=== PATIENT | female | born 1945 | race Asian ===

== ENCOUNTER 2016-12-16 08:16 | Outpatient (CLI) | payer MEDICARE, MEDICAID ==
--- NOTE | 2016-12-16 12:23 | XRAY Report ---
TWO-VIEW CHEST: 12/16/2016 CLINICAL INDICATION: Endstage renal disease. FINDINGS: Frontal and lateral views of the chest demonstrate an enlarged cardiac silhouette. Mild p ulmonary vascular congestion is present. No focal consolidation, effusion, or pneumothorax is seen. IMPRESSION: CARDIOMEGALY AND MILD PULMONARY VASCULAR CONGESTION. JOB #: [id number] EXT JOB #:[id number]
[2016-12-17 10:08] LABS: TEST RESULT REPORT (())
== END 2016-12-16 08:17 | disposition home or self-care (01) ==
LOC: LAB 08:16
PROVIDERS: ATTEND Internal Medicine Nephrology
DX: I51.7 Cardiomegaly (principal); R09.89 Other specified symptoms and signs involving the circulatory and respiratory systems; N18.6 End stage renal disease
CPT/HCPCS: 36415; 71020; 81599; 86317; 86705; 86803; 87340; 87522

== ENCOUNTER 2017-06-01 09:12 | Outpatient (CLI) | payer MEDICARE, MEDICAID ==
--- NOTE | 2017-06-02 15:53 | Mammography Report ---
DATE OF SERVICE: 06/01/2017 DIGITAL SCREENING MAMMOGRAM: 06/01/2017 CLINICAL INDICATION: A 72-year-old, for screening. COMPARISON: 05/2015, 02/2013, 05/2012, 12/2010, 02/2009. TECHNIQUE: Routine CC and MLO projections were obtained of the breasts. FINDINGS: The breasts demonstrate heterogeneously dense fibroglandular parenchyma bilaterally. Punctate, typically benign calcifications are present. No suspicious masses, clustered microcalcifications, or regions of architectural distortion are identified. IMPRESSION: BENIGN FINDINGS. RECOMMENDATION: ROUTINE ANNUAL SCREENING UNLESS OTHERWISE CLINICALLY INDICATED. BIRADS CATEGORY 2-BENIGN FINDINGS. STANDARD QUALIFYING STATEMENTS: 1. This examination was reviewed with the aid of Computer-Aided Detection (CAD). 2. A negative or benign imaging report should not delay biopsy if clinically suspicious findings are present. Consider surgical consultation if warranted. More than 5% of cancers are not identified by imaging. 3. Dense breasts may obscure an underlying neoplasm. TD: 06/02/2017 16:52
== END 2017-06-01 09:13 | disposition home or self-care (01) ==
LOC: DI.N 09:12
PROVIDERS: ATTEND Internal Medicine
DX: Z12.31 Encounter for screening mammogram for malignant neoplasm of breast (principal)
CPT/HCPCS: 77067

== ENCOUNTER 2017-11-02 08:44 | Outpatient (CLI) | payer MEDICARE, MEDICAID ==
--- NOTE | 2017-11-02 16:10 | XRAY Report ---
Procedure Date: 11/02/2017 Accession Number: [id number] / [id number] Procedure: XR - Chest 2 View X-Ray CPT Code: 74432 FULL RESULT: EXAM: Chest 2 View X-Ray DATE: 11/02/2017 9:14 AM CLINICAL HISTORY: END STAGE RENAL DISEASE,ENCOUNTER FOR SCREENING, U COMPARISON: 12/16/2016 TECHNIQUE: 2 view chest FINDINGS: Frontal and lateral views of the chest demonstrate a normal cardiac silhouette. The lungs are clear. No effusion or pneumothorax is present. Previously seen cardiomegaly and vascular congestion have resolved. IMPRESSION: Normal chest.
--- NOTE | 2017-11-03 11:08 | CT Report ---
Procedure Date: 11/02/2017 Accession Number: [id number] / [id number] Procedure: CT - Abdomen/Pelvis W/O CPT Code: FULL RESULT: EXAM: CT ABDOMEN AND PELVIS EXAM DATE: 11/02/2017 09:04 AM. CLINICAL HISTORY: END STAGE RENAL DISEASE,ENCOUNTER FOR SCREENING, U. COMPARISONS: None. TECHNIQUE: Routine helical CT imaging was performed through the abdomen and pelvis. IV contrast: . Enteric contrast: No. Reconstructions: Coronal and sagittal. In accordance with CT protocol optimization, one or more of the following dose reduction techniques were utilized for this exam: automated exposure control, adjustment of mA and/or KV based on patient size, or use of iterative reconstructive technique. FINDINGS: Lung Bases: Unremarkable. Liver: Normal. No masses. Gallbladder/Bile Ducts: Unremarkable. Spleen: Normal. Pancreas: Normal. Adrenal Glands: Normal. Kidneys: Normal. No masses or hydronephrosis. Peritoneal Cavity/Bowel: Diverticulosis. No free fluid, free air or adenopathy. No masses or acute inflammatory process. The appendix is well visualized and normal. Pelvic Organs: The bladder is decompressed. Vasculature: Severe atherosclerotic disease. Bones: No significant abnormality. Other: None. IMPRESSION: 1. Severe atherosclerotic disease. Mild wall calcifications in the mid left external iliac artery and mild wall calcifications in the distal right external iliac artery. Moderate to severe wall calcifications in the bilateral common iliac arteries and infrarenal abdominal aorta. 2. Diverticulosis. RADIA
== END 2017-11-02 08:45 | disposition home or self-care (01) ==
LOC: DI 08:44
PROVIDERS: ATTEND Internal Medicine Nephrology
DX: N18.6 End stage renal disease (principal); Z13.9 Encounter for screening, unspecified; I70.8 Atherosclerosis of other arteries; K57.90 Diverticulosis of intestine, part unspecified, without perforation or abscess without bleeding
CPT/HCPCS: 71046; 74176

== ENCOUNTER 2017-11-18 07:31 | Outpatient (CLI) | payer MEDICARE, MEDICAID ==
--- NOTE | 2017-11-18 14:56 | Ultrasound Report ---
Procedure Date: 11/18/2017 Accession Number: [id number] / [id number] Procedure: US - Carotid Doppler Complete CPT Code: FULL RESULT: EXAM: BILATERAL CAROTID AND VERTEBRAL ARTERY DUPLEX DOPPLER ULTRASOUND: EXAM DATE: 11/18/2017 08:33 AM CLINICAL HISTORY: Endstage renal disease. Encounter for screening. COMPARISON: None. TECHNIQUE: Grayscale imaging, color Doppler, and duplex spectral Doppler were used to evaluate the carotid and vertebral arteries bilaterally. Static images were obtained. FINDINGS: Prominent calcified plaque within distal right carotid bulb and proximal ICA, image 25. Peak systolic velocity with proximal right ICA was 149 cm/s; however, 224 cm/s within distal carotid bulb near ICA. Calcific plaque within distal left carotid bulb limits grayscale and color Doppler evaluation. Tortuous left internal carotid artery. Normal antegrade flow is present in bilateral vertebral arteries. VELOCITIES (cm/sec): Right: RCCA Prox: PSV 54 cm/sec. RCCA Dist: PSV 54 cm/sec, EDV 14 cm/sec. RECA: PSV 213 cm/sec. R Bulb: PSV 224 cm/sec, EDV 53 cm/sec, ICA/CCA ratio 4.1. VEENA Prox: PSV 149 cm/sec, EDV 21 cm/sec, ICA/CCA ratio 2.75. VEENA Mid: PSV 72 cm/sec, EDV 16 cm/sec, ICA/CCA ratio 1.33. VEENA Dist: PSV 80 cm/sec, EDV 20 cm/sec, ICA/CCA ratio 1.48. RVA: PSV 62 cm/sec. RVA flow direction: Antegrade. Left: LCCA Prox: PSV 89 cm/sec. LCCA Dist: PSV 49 cm/sec, EDV 11 cm/sec. LECA: PSV 157 cm/sec. L Bulb: PSV 124 cm/sec, EDV 20 cm/sec, ICA/CCA ratio 2.53. LICA Prox: PSV 75 cm/sec, EDV 20 cm/sec, ICA/CCA ratio 1.53. LICA Mid: PSV 82 cm/sec, EDV 15 cm/sec, ICA/CCA ratio 1.67. LICA Dist: PSV 47 cm/sec, EDV 17 cm/sec, ICA/CCA ratio 0.96. LVA: PSV 50 cm/sec. LVA flow direction: Antegrade. ICA diameter stenosis: Right: 50-69%, likely closer to 69% near ICA origin. Left: Less than 50%. IMPRESSION: 1. Significant bilateral distal carotid bulb and proximal internal carotid artery plaquing. 2. In the right carotid artery there is 50-69% stenosis, likely closer to 69% near its origin. 3. In the left carotid artery there are no elevated carotid artery velocities to suggest hemodynamically significant stenosis; however, borderline elevated velocities are noted in distal left carotid bulb. 4. Normal antegrade flow is present in bilateral vertebral arteries. General Recommendations: Stenosis =50% ICA - Follow-up ultrasound 6-12 months Stenosis <50% ICA - High Risk Patient with plaque - Follow-up ultrasound 1-2 years Normal Study but High Risk Patient - Follow-up ultrasound 3-5 years Management recommendations and diagnostic criteria are based on current IAC endorsed standards in Carotid Artery Stenosis: Grayscale and Doppler Ultrasound Diagnosis. Validated velocity measurements with angiographic measurements and velocity criteria are extrapolated from diameter data as defined by the Society of Radiologists in Ultrasound Consensus Conference Radiology 2003; 229;340-346. RADIA
--- NOTE | 2017-11-18 15:08 | Ultrasound Report ---
Procedure Date: 11/18/2017 Accession Number: [id number] / [id number] Procedure: US - Abdomen Complete CPT Code: FULL RESULT: EXAM: ABDOMEN ULTRASOUND EXAM DATE: 11/18/2017 09:15 AM. CLINICAL HISTORY: END STAGE RENAL Disease, encounter FOR SCREENING, U. COMPARISON: None. TECHNIQUE: Real-time scanning was performed with static images obtained. FINDINGS: Liver: Normal in size and echotexture. 15.4 cm. No sonographic evidence for liver mass. Main portal vein flow: Hepatopetal. Gallbladder: Normal. No stones, wall thickening, or sonographic Garcia's sign. Biliary System: Common bile duct measures 5-7 mm. No intrahepatic or extrahepatic ductal dilatation. Pancreas: Visualized portion is unremarkable. Kidneys: Right: 8.2 cm longitudinally. Diffusely echogenic renal parenchyma. No contour-deforming mass, stones, or hydronephrosis. Left: 7.9 cm longitudinally. Diffusely echogenic renal parenchyma. No contour-deforming solid mass, stones, or hydronephrosis. Lateral left mid renal cyst measures 1.5 cm. Spleen: 8.6 cm. Normal in size and echotexture. Aorta and Inferior Vena Cava: Extensive calcified atherosclerotic plaque within abdominal aorta. Abdominal aorta measures 1.3 cm diameter distally, 1.7 cm midportion and 2.2 cm proximally. No abdominal aortic aneurysm. Unremarkable IVC. Other: None. IMPRESSION: 1. Diffusely echogenic bilateral renal parenchyma, compatible with medical renal disease. 2. No hydronephrosis involving either kidney. 3. Atherosclerosis. RADIA
--- NOTE | 2017-11-18 16:12 | Ultrasound Report ---
Procedure Date: 11/18/2017 Accession Number: [id number] / [id number] Procedure: US - Duplex Aorta Complete CPT Code: FULL RESULT: EXAM: AORTIC DOPPLER ULTRASOUND EXAM DATE: 11/18/2017 09:50 AM. CLINICAL HISTORY: End-stage renal disease, encounter for screening. COMPARISON: None. TECHNIQUE: Real-time sonographic imaging of retroperitoneal vascular structures, including color-flow, Doppler flow and spectral analysis was performed by the clean up helper banquet. Multiple route sales representative static images were saved for review. FINDINGS: Aorta: The abdominal aorta was adequately visualized. No evidence for abdominal aortic aneurysm. Extensive calcified atherosclerotic plaque within the abdominal aorta and common iliac arteries. Aorta: Proximal: Sagittal AP: 2.2 cm. Mid: Transverse: 1.7 X 1.8 cm. Distal: Transverse: 1.3 X 1.1 cm. Caliber WNL: Yes. Plaque visualized: Yes. Iliacs: Right Iliac: Transverse: 1.1 X 1.1 cm. Left Iliac: Transverse: 0.9 X 0.9 cm. Doppler: Prox Aorta PSV: 75 cm/sec. Mid Aorta PSV: 109 cm/sec. Dist Aort PSV: 168 cm/sec. Proximal RCIA PSV: 124 cm/sec. Proximal LCIA PSV: 129 cm/sec. Right EIA: 124 cm/sec. Left EIA: 138 cm/sec. Iliac Vessels: The visualized proximal common iliac arteries are normal in caliber. Other: None. IMPRESSION: 1. No abdominal aortic aneurysm. 2. Atherosclerosis. Extensive calcified atherosclerotic plaque throughout the abdominal aorta and common iliac arteries. RADIA
--- NOTE | 2017-11-18 16:44 | Ultrasound Report ---
Procedure Date: 11/18/2017 Accession Number: [id number] / [id number] Procedure: US - Duplex Lwr Ext Arterial Bilat CPT Code: FULL RESULT: EXAM: BILATERAL LOWER EXTREMITY ARTERIAL DOPPLER ULTRASOUND EXAM DATE: 11/18/2017 10:00 AM. CLINICAL HISTORY: End stage renal disease, encounter for screening, U. COMPARISON: None. TECHNIQUE: Real-time sonographic vascular imaging was performed by the crushing foreman, utilizing color-flow, Doppler flow, and spectral analysis. Multiple patient intake representative static images were saved for review. FINDINGS: Right: Prominent focal calcified plaque within right common femoral artery. Turbulent flow noted with greater than 4 fold increase in velocity from proximal right common femoral artery with PSV 97 cm/s increasing to 419 cm/s within the mid common femoral artery, consistent with greater than 75% stenosis. Left: Relatively mild common femoral arterial calcified plaque. Peak systolic velocity within profunda femoral artery increases to 300 cm/s with turbulent power Doppler flow. Findings consistent with a greater than 50% stenosis. Peak systolic velocity decreases from 143 cm/s in proximal SFA to 38 cm/s in mid SFA before increasing to 241 cm/s in distal SFA. Peak Systolic Velocities: R MANAGER ASSURANCE: 420.1 cm/sec. R PRF: 162.1 cm/sec. R SFA Pv: 104.3 cm/sec. R SFA Mv: 124.8 cm/sec. R SFA Dv: 59.3 cm/sec. R POP: 62.4 cm/sec. R PT: 30.8 cm/sec. R PER: 26.3 cm/sec. R ANT: 36.7 cm/sec. R DPA 25.2 cm/sec. L MANAGER ASSURANCE: 94.7 cm/sec. L PRF: 300.4 cm/sec. L SFA Pv: 143.2 cm/sec. L SFA Mv: 37.7 cm/sec. L SFA Dv: 240.7 cm/sec. L POP: 23.6 cm/sec. L PT: 19.3 cm/sec. L PER: 11.0 cm/sec. L ANT: 17.0 cm/sec. L DPA 7.8 cm/sec. IMPRESSION: 1. 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 2. Multiple areas of stenosis within left superficial femoral artery are likely present. Peak systolic velocity decreases from 143 cm/s in proximal SFA to 38 cm/s in mid SFA, probably related to greater than 50% stenosis. There is a greater than 6 fold increase in PSV from mid to distal left superficial femoral artery, compatible with greater than 50% and likely closer to 75% stenosis. 3. Consider angiography of the lower extremities with either CTA or DSA/interventional radiology if clinically warranted. RADIA
== END 2017-11-18 07:32 | disposition home or self-care (01) ==
LOC: DI 07:31
PROVIDERS: ATTEND Internal Medicine Nephrology
DX: N18.6 End stage renal disease (principal); Z13.9 Encounter for screening, unspecified; I65.21 Occlusion and stenosis of right carotid artery; I77.1 Stricture of artery; I70.0 Atherosclerosis of aorta; I70.8 Atherosclerosis of other arteries; I70.201 Unspecified atherosclerosis of native arteries of extremities, right leg
CPT/HCPCS: 76700; 93880; 93925; 93978

== ENCOUNTER 2019-12-01 11:06 | Outpatient (CLI) | payer MEDICARE, MEDICAID ==
--- NOTE | 2019-12-04 12:00 | Mammography Report ---
BILATERAL DIGITAL SCREENING MAMMOGRAM 3D/2D: 12/01/2019 CLINICAL: Routine screening. Comparison is made to exams dated: 06/01/2017 mammogram and 05/29/2015 mammogram - [facility]. The tissue of both breasts is extremely dense, which lowers the sensitivity of mammography. There is an irregular asymmetry with a spiculated margin in the left breast sub-areolar depth central to the nipple seen on the craniocaudal view only. No other significant masses, calcifications, or other findings are seen in either breast. IMPRESSION: INCOMPLETE: NEEDS ADDITIONAL IMAGING EVALUATION The irregular asymmetry in the left breast is indeterminate. Additional views with possible ultrasou nd are recommended. This exam was interpreted at Station ID: [id number]. NOTE: For mammograms, a report in lay terms will be sent to the patient. Approximately 15% of breast malignancies will not be visualized mammographically. In the management of a palpable breast mass, a negative mammogram must not discourage biopsy of a clinically suspicious lesion. Electronically Signed By: Sandi peters/jesus manuel:12/01/2019 13:00:25 ACR BI-RADS Category 0: Incomplete 3340F PARENCHYMAL PATTERN: (VD) - The breast(s) demonstrate(s) extremely dense parenchyma, limiting the sen sitivity of mammography. BI-RADS CATEGORY: (0) - 0 Mammo and US [id number] Immediate follow-up LATERALITY: (B)
== END 2019-12-01 11:07 | disposition home or self-care (01) ==
LOC: DI 11:06
PROVIDERS: ATTEND Internal Medicine
DX: Z12.31 Encounter for screening mammogram for malignant neoplasm of breast (principal); R92.8 Other abnormal and inconclusive findings on diagnostic imaging of breast
CPT/HCPCS: 77063; 77067

== ENCOUNTER 2020-01-19 13:30 | Outpatient (CLI) | payer MEDICARE, MEDICAID ==
--- NOTE | 2020-01-22 10:35 | Mammography Report ---
UNILATERAL LEFT DIGITAL DIAGNOSTIC MAMMOGRAM 3D/2D: 01/19/2020 CLINICAL: Patient returns today to evaluate asymmetry in left breast. Comparison is made to exams dated: 12/01/2019 mammogram, 06/01/2017 mammogram, 05/29/2015 mammogram, 02/22 mammogram, 03/20/2013 ultrasound, and 06/16/2012 mammogram - [facility]. The tissue of left breast is heterogeneously dense. This may lower the sensitivity of mammography. The previously described benign asymmetry in the left breast sub-areolar depth central to the nipple seen on the craniocaudal view only is no longer seen on not confirmed on today's additional views. This is consistent with summation artifact. No other significant masses or calcifications are seen in the breast. IMPRESSION: BENIGN The previously described asymmetry disperses with additional views and is consistent with summation a rtifact. There is no mammographic evidence of malignancy. A 1 year screening mammogram is recommended. Findings and recommendations were conveyed to the patient during today's examination. This exam was interpreted at Station ID: [id number]. NOTE: For mammograms, a report in lay terms will be sent to the patient. Approximately 15% of breast malignancies will not be visualized mammographically. In the management of a palpable breast mass, a negative mammogram must not discourage biopsy of a clinically suspicious lesion. Electronically Signed By: Jeffery Myers M.D. aty/:01/19/2020 14:59:16 ACR BI-RADS Category 2: Benign Finding(s) 3342F PARENCHYMAL PATTERN: (D) - The breast(s) demonstrate(s) heterogeneously dense fibroglandular ras cline. BI-RADS CATEGORY: (2) - 2 RECOMMENDATION: (ANNUAL) - Recommend routine annual screening mammography. [id number] 1 year screening LATERALITY: (B)
== END 2020-01-19 13:31 | disposition home or self-care (01) ==
LOC: DI 13:30
PROVIDERS: ATTEND Internal Medicine
DX: R92.8 Other abnormal and inconclusive findings on diagnostic imaging of breast (principal)

== ENCOUNTER 2021-05-27 08:51 | Outpatient (CLI) | payer MEDICARE, MEDICAID ==
--- NOTE | 2021-05-28 13:56 | Mammography Report ---
BILATERAL DIGITAL SCREENING MAMMOGRAM 3D/2D: 05/27/2021 CLINICAL: Routine screening. Comparison is made to exams dated: 01/19/2020 mammogram, 12/01/2019 mammogram, 06/01/2017 mammogram, 05/29 mammogram, 03/20/2013 ultrasound, and 03/20/2013 mammogram - [facility]. The tissue of both breasts is heterogeneously dense. This may lower the sensitivity of mammography. There are benign vascular calcifications in both breasts. No significant masses, calcifications, or other findings are seen in either breast. There has been no significant interval change. IMPRESSION: BENIGN There is no mammographic evidence of malignancy. A 1 year screening mammogram is recommended. This exam was interpreted at Station ID: [id number]. NOTE: For mammograms, a report in lay terms will be sent to the patient. Approximately 15% of breast malignancies will not be visualized mammographically. In the management of a palpable breast mass, a negative mammogram must not discourage biopsy of a clinically suspicious lesion. Electronically Signed By: Mulugeta Menon acr/penrad:05/27/2021 10:54:21 ACR BI-RADS Category 2: Benign Finding(s) 3342F PARENCHYMAL PATTERN: (D) - The breast(s) demonstrate(s) heterogeneously dense fibroglandular ras cline. BI-RADS CATEGORY: (2) - 2 RECOMMENDATION: (ANNUAL) - Recommend routine annual screening mammography. [id number] 1 year screening LATERALITY: (B)
== END 2021-05-27 08:52 | disposition home or self-care (01) ==
LOC: DI.N 08:51
PROVIDERS: ATTEND Internal Medicine
DX: Z12.31 Encounter for screening mammogram for malignant neoplasm of breast (principal)

== ENCOUNTER 2023-02-01 09:45 | Outpatient (CLI) | payer MEDICARE, MEDICAID ==
--- NOTE | 2023-02-02 09:34 | Mammography Report ---
BILATERAL DIGITAL SCREENING MAMMOGRAM 3D/2D: 02/01/2023 CLINICAL: Routine screening. Comparison is made to exams dated: 05/27/2021 mammogram, 01/19/2020 mammogram, 12/01/2019 mammogram, 06/01 mammogram, 05/29/2015 mammogram, and 03/20/2013 ultrasound - [facility]. Both breasts are heterogeneously dense, which may obscure small masses (category c / 51-75% glandular tissue). There are benign vascular calcifications in both breasts. No significant masses, calcifications, or other findings are seen in either breast. There has been no significant interval change. IMPRESSION: BENIGN There is no mammographic evidence of malignancy. A 1 year screening mammogram is recommended. Based on the Tyrer Cuzick model (a risk assessment model) the patients lifetime risk is 2.3% and her 10 year risk is 0.0%. According to the ACR, ACS, and NCCN guidelines, an annual breast MRI exam wolfgang g with mammogram is recommended if the patients lifetime risk is 20% or greater. This exam was interpreted at Station ID: [id number]. NOTE: For mammograms, a report in lay terms will be sent to the patient. Approximately 15% of breast malignancies will not be visualized mammographically. In the management of a palpable breast mass, a negative mammogram must not discourage biopsy of a clinically suspicious lesion. Electronically Signed By: Jeffery cheney/jesus manuel:02/01/2023 12:00:49 letter sent: No_Letter ACR BI-RADS Category 2: Benign Finding(s) 3342F PARENCHYMAL PATTERN: (D) - The breast(s) demonstrate(s) heterogeneously dense fibroglandular ras cline. BI-RADS CATEGORY: (2) - 2 Mammogram [id number] 1 year screening LATERALITY: (B)
== END 2023-02-01 09:46 | disposition home or self-care (01) ==
LOC: DI.N 09:45
PROVIDERS: ATTEND Internal Medicine
DX: Z12.31 Encounter for screening mammogram for malignant neoplasm of breast (principal)

== ENCOUNTER 2023-06-20 01:29 | Emergency (ER) | payer MEDICARE, MEDICAID ==
[2023-06-20] MEDS ORDERED: MIDAZOLAM 2 MG/2 ML VIAL ONE ×3 (02:10→02:54)
[2023-06-20] MEDS ORDERED: PROPOFOL 1000 MG/100 ML 1,000 MG/100 ML BOTTLE IV ONE (02:10)
[2023-06-20] MEDS: PROPOFOL 1000 MG/100 ML 1,000 MG/100 ML BOTTLE IV SCH (02:26)
[2023-06-20] MEDS: MIDAZOLAM 2 MG/2 ML VIAL IVP STA (02:56)
[2023-06-20 02:59] LABS: BASOPHILS % (AUTO) 0.3 %; EOSINOPHILS # (AUTO) 0.1 10^3/uL (0.0-0.7); EOSINOPHILS % (AUTO) 0.9 %; HCT - HEMATOCRIT 29.7 % (37.0-47.0); HGB - HEMOGLOBIN 9.1 g/dL (12.0-16.0); LYMPHOCYTES # (AUTO) 0.9 10^3/uL (1.5-3.5); LYMPHOCYTES % (AUTO) 8.7 %; MEAN CORPUSCULAR HEMOGLOBIN 31.1 pg (27.0-31.0); MEAN CORPUSCULAR HGB CONC 30.6 g/dL (32.0-36.0); MEAN CORPUSCULAR VOLUME 101.4 fL (81.0-99.0); MEAN PLATELET VOLUME 9.5 fL (7.9-10.8); MONOCYTES # (AUTO) 0.7 10^3/uL (0.0-1.0); MONOCYTES % (AUTO) 6.9 %; NEUTROPHILS # (AUTO) 8.6 10^3/uL (1.5-6.6); NEUTROPHILS % (AUTO) 82.1 %; PLT - PLATELET COUNT 164 10^3/uL (130-450); RED BLOOD COUNT 2.93 10^6/uL (4.20-5.40); RED CELL DISTRIBUTION WIDTH 20.2 % (12.0-15.0); WHITE BLOOD COUNT 10.5 x10^3/uL (4.8-10.8)
--- NOTE | 2023-06-20 03:00 | ED Physician Documentation ---
History of Present Illness - Stated complaint Stated Complaint: SOA/BP HIGH - Chief complaint Chief Complaint: Resp - History obtained from History obtained from: Family - Additonal information Additional information: 78-year-old female with history of ESRD on Wednesday dialysis, insulin-dependent diabetes, hypertension, gout, recent COVID-19 infection presents by private vehicle from home for low ox saturations and variable blood pressures at home. History is obtained from daughter at bedside. Daughter stated that patient underwent normal dialysis yesterday, however since yesterday she has had intermittent low pulse ox readings at home and variable blood pressures, ranging from hypotensive to hypertensive. Patient was reluctant to go to the ER, however this evening she felt poorly enough that family convinced her to come in for evaluation. Almost immediately after arrival to the emergency department the patient exhibited seizure-like activity. On shelter monitor it was noted that patient was bradycardic in the 20s. Pulse unable to be palpated and CPR initiated immediately. Review of Systems Unable to obtain: Unresponsive PD PAST MEDICAL HISTORY - Past Medical History Past Medical History: Yes - Present Medications Home Medications: Ambulatory Orders Medication Instructions Recorded Confirmed Amlodipine Besylate [Norvasc] 10 mg PO DAILY 06/20/23 06/20/23 Atorvastatin Calcium 40 mg PO DAILY 06/20/23 06/20/23 Insulin Glargine [Lantus Solostar] 30 unit SUBQ BID 06/20/23 06/20/23 Meclizine HCl 25 mg PO QID PRN 06/20/23 06/20/23 Torsemide 40 mg PO DAILY 06/20/23 06/20/23 allopurinoL [Allopurinol] 200 mg PO DAILY 06/20/23 06/20/23 carvediloL [Coreg] 12.5 mg PO BID 06/20/23 06/20/23 - Allergies Allergies/Adverse Reactions: Allergies Allergy/AdvReac Type Severity Reaction Status Date / Time lisinopril Allergy Unknown Verified 06/20/23 02:25 - Social History Does the pt smoke?: No Smoking Status: Never smoker PD ED PE NORMAL - Vitals Vital signs reviewed: Yes - General General: Other (appears chronically unwell, older than stated age) - HEENT HEENT: Other (large tongue) - Neck Neck: Supple, no meningeal sign - Cardiac Cardiac: Other (no palpable pulse - CPR in progress) - Respiratory Respiratory: Other (bagged respirations, coarse breath sounds) - Abdomen Abdomen: Soft, Non tender - Derm Derm: Other (dry, no rashes) - Extremities Extremities: No deformity - Neuro Neuro: Other (GCS 3, ongoing CPR) Results - Vitals Vitals: Vital Signs - 24 hr 06/20/23 06/20/23 06/20/23 01:35 01:55 02:00 Temperature Heart Rate 88 Respiratory 15 Rate Blood Pressure 163/80 H 129/65 O2 Saturation 90 L 100 95 06/20/23 06/20/23 06/20/23 02:17 02:20 02:30 Temperature Heart Rate 68 68 70 Respiratory 16 18 Rate Blood Pressure 118/68 184/61 H O2 Saturation 99 100 06/20/23 06/20/23 06/20/23 03:00 03:20 03:27 Temperature Heart Rate 59 L 66 67 Respiratory 18 18 16 Rate Blood Pressure 126/60 87/45 L 90/47 L O2 Saturation 93 99 95 06/20/23 06/20/23 06/20/23 03:30 03:56 04:10 Temperature Heart Rate 81 60 73 Respiratory 16 16 18 Rate Blood Pressure 94/45 L 127/52 L 128/51 L O2 Saturation 98 91 L 99 06/20/23 06/20/23 06/20/23 04:30 05:00 05:30 Temperature 35.7 C L 35.6 C L Heart Rate 54 L 57 L 59 L Respiratory 16 17 17 Rate Blood Pressure 126/52 L 127/51 L 120/53 L O2 Saturation 96 98 98 06/20/23 06/20/23 06/20/23 06:00 06:30 06:38 Temperature Heart Rate 54 L 70 62 Respiratory 16 16 16 Rate Blood Pressure 120/52 L 123/53 L O2 Saturation 97 97 100 Oxygen O2 Source Mechanical ventilator - Labs Labs: Laboratory Tests 06/20/23 06/20/23 06/20/23 01:43 02:37 02:46 WBC 10.5 RBC 2.93 L Hgb 9.1 L Hct 29.7 L MCV 101.4 H MCH 31.1 H MCHC 30.6 L RDW 20.2 H Plt Count 164 MPV 9.5 Neut # (Auto) 8.6 H Lymph # (Auto) 0.9 L [place] # (Auto) 0.7 Eos # (Auto) 0.1 Baso # (Auto) 0.0 Absolute Nucleated RBC 0.00 Nucleated RBC % 0.0 Manual Slide Review Indicated Platelet Estimate NORMAL (130-450,000) Platelet Morphology NORMAL APPEARANCE PT INR Bld Gas Analysis Time Sample Site ABG pH ABG pCO2 ABG pO2 ABG HCO3 ABG Total CO2 ABG O2 Saturation ABG Base Excess Agustín Test Respiration Rate O2 Delivery Device Vent Mode FiO2 Tidal Volume PEEP Sodium Potassium Chloride Carbon Dioxide Anion Gap BUN Creatinine Estimated GFR (MDRD) Glucose POC Whole Bld Glucose 176 H Lactic Acid Calcium Phosphorus Magnesium Total Bilirubin AST ALT Alkaline Phosphatase Troponin I High Sens B-Natriuretic Peptide Total Protein Albumin Globulin Albumin/Globulin Ratio Lipase Nasal Adenovirus (PCR) NOT DETECTED Nasal B. parapertussis DNA (PCR) NOT DETECTED Nasal Coronavir 229E PCR NOT DETECTED Nasal Coronavir HKU1 PCR NOT DETECTED Nasal Coronavir NL63 PCR NOT DETECTED Nasal Coronavir OC43 PCR NOT DETECTED Nasal Enterovir/Rhinovir PCR NOT DETECTED Nasal Influenza B PCR NOT DETECTED Nasal Influenza A PCR NOT DETECTED Nasal Parainfluen 1 PCR NOT DETECTED Nasal Parainfluen 2 PCR NOT DETECTED Nasal Parainfluen 3 PCR NOT DETECTED Nasal Parainfluen 4 PCR NOT DETECTED Nasal RSV (PCR) NOT DETECTED Nasal B.pertussis DNA PCR NOT DETECTED Nasal C.pneumoniae (PCR) NOT DETECTED Damian Human Metapneumo PCR NOT DETECTED Nasal M.pneumoniae (PCR) NOT DETECTED Nasal SARS-CoV-2 (PCR) NOT DETECTED Blood Type Blood Type Recheck Antibody Screen 06/20/23 06/20/23 06/20/23 02:46 02:46 02:46 WBC RBC Hgb Hct MCV MCH MCHC RDW Plt Count MPV Neut # (Auto) Lymph # (Auto) [place] # (Auto) Eos # (Auto) Baso # (Auto) Absolute Nucleated RBC Nucleated RBC % Manual Slide Review Platelet Estimate Platelet Morphology PT 12.5 INR 1.1 Bld Gas Analysis Time Sample Site ABG pH ABG pCO2 ABG pO2 ABG HCO3 ABG Total CO2 ABG O2 Saturation ABG Base Excess Agustín Test Respiration Rate O2 Delivery Device Vent Mode FiO2 Tidal Volume PEEP Sodium 137 Potassium 5.7 H Chloride 94 L Carbon Dioxide 31 Anion Gap 12.0 BUN 56 H Creatinine 5.7 H Estimated GFR (MDRD) 7 L Glucose 265 H POC Whole Bld Glucose Lactic Acid 3.0 H* Calcium 9.7 Phosphorus 6.1 H Magnesium 2.5 H Total Bilirubin 0.7 AST 21 ALT 23 Alkaline Phosphatase 73 Troponin I High Sens B-Natriuretic Peptide Total Protein 7.3 Albumin 3.7 Globulin 3.6 Albumin/Globulin Ratio 1.0 Lipase 111 H Nasal Adenovirus (PCR) Nasal B. parapertussis DNA (PCR) Nasal Coronavir 229E PCR Nasal Coronavir HKU1 PCR Nasal Coronavir NL63 PCR Nasal Coronavir OC43 PCR Nasal Enterovir/Rhinovir PCR Nasal Influenza B PCR Nasal Influenza A PCR Nasal Parainfluen 1 PCR Nasal Parainfluen 2 PCR Nasal Parainfluen 3 PCR Nasal Parainfluen 4 PCR Nasal RSV (PCR) Nasal B.pertussis DNA PCR Nasal C.pneumoniae (PCR) Damian Human Metapneumo PCR Nasal M.pneumoniae (PCR) Nasal SARS-CoV-2 (PCR) Blood Type Blood Type Recheck Antibody Screen 06/20/23 06/20/23 06/20/23 02:46 02:46 02:46 WBC RBC Hgb Hct MCV MCH MCHC RDW Plt Count MPV Neut # (Auto) Lymph # (Auto) [place] # (Auto) Eos # (Auto) Baso # (Auto) Absolute Nucleated RBC Nucleated RBC % Manual Slide Review Platelet Estimate Platelet Morphology PT INR Bld Gas Analysis Time Sample Site ABG pH ABG pCO2 ABG pO2 ABG HCO3 ABG Total CO2 ABG O2 Saturation ABG Base Excess Agustín Test Respiration Rate O2 Delivery Device Vent Mode FiO2 Tidal Volume PEEP Sodium Potassium Chloride Carbon Dioxide Anion Gap BUN Creatinine Estimated GFR (MDRD) Glucose POC Whole Bld Glucose Lactic Acid Calcium Phosphorus Magnesium Total Bilirubin AST ALT Alkaline Phosphatase Troponin I High Sens 35.4 H* B-Natriuretic Peptide 929 H Total Protein Albumin Globulin Albumin/Globulin Ratio Lipase Nasal Adenovirus (PCR) Nasal B. parapertussis DNA (PCR) Nasal Coronavir 229E PCR Nasal Coronavir HKU1 PCR Nasal Coronavir NL63 PCR Nasal Coronavir OC43 PCR Nasal Enterovir/Rhinovir PCR Nasal Influenza B PCR Nasal Influenza A PCR Nasal Parainfluen 1 PCR Nasal Parainfluen 2 PCR Nasal Parainfluen 3 PCR Nasal Parainfluen 4 PCR Nasal RSV (PCR) Nasal B.pertussis DNA PCR Nasal C.pneumoniae (PCR) Damian Human Metapneumo PCR Nasal M.pneumoniae (PCR) Nasal SARS-CoV-2 (PCR) Blood Type B POSITIVE Blood Type Recheck Antibody Screen NEGATIVE 06/20/23 06/20/2306/20/24 03:00 03:09 06:46 WBC RBC Hgb Hct MCV MCH MCHC RDW Plt Count MPV Neut # (Auto) Lymph # (Auto) [place] # (Auto) Eos # (Auto) Baso # (Auto) Absolute Nucleated RBC Nucleated RBC % Manual Slide Review Platelet Estimate Platelet Morphology PT INR Bld Gas Analysis Time 0316 Sample Site RIGHT RADIAL ABG pH 7.48 H ABG pCO2 44 ABG pO2 223 H* ABG HCO3 31.6 H ABG Total CO2 32.9 H ABG O2 Saturation 99 H ABG Base Excess 7.3 H Agustín Test POSITIVE Respiration Rate 18 O2 Delivery Device VENTILATOR Vent Mode ASSIST/CONTROL FiO2 100.00 Tidal Volume 350 PEEP 5 Sodium Potassium Chloride Carbon Dioxide Anion Gap BUN Creatinine Estimated GFR (MDRD) Glucose POC Whole Bld Glucose 209 H Lactic Acid Calcium Phosphorus Magnesium Total Bilirubin AST ALT Alkaline Phosphatase Troponin I High Sens B-Natriuretic Peptide Total Protein Albumin Globulin Albumin/Globulin Ratio Lipase Nasal Adenovirus (PCR) Nasal B. parapertussis DNA (PCR) Nasal Coronavir 229E PCR Nasal Coronavir HKU1 PCR Nasal Coronavir NL63 PCR Nasal Coronavir OC43 PCR Nasal Enterovir/Rhinovir PCR Nasal Influenza B PCR Nasal Influenza A PCR Nasal Parainfluen 1 PCR Nasal Parainfluen 2 PCR Nasal Parainfluen 3 PCR Nasal Parainfluen 4 PCR Nasal RSV (PCR) Nasal B.pertussis DNA PCR Nasal C.pneumoniae (PCR) Damian Human Metapneumo PCR Nasal M.pneumoniae (PCR) Nasal SARS-CoV-2 (PCR) Blood Type Blood Type Recheck B POSITIVE Antibody Screen Procedures - Intubation - Major Provider: Emergency physician Blade: Presley Tube: Size-enter number (7.5), Marked at lips-enter cm Route: Oral Confirmation: Direct visualization, Bilateral breath sounds, No abdominal breath sound, End tidal CO2, Pulse ox, Chest xray Complications: Aspiration - Central Line - Major Central Line Preparation: Consent Obtained (family), Time out completed, Ultrasound used, Sterile prep and drape Central line location: Right IJ Central line type: Triple lumen Central line aftercare: Chlorhexidine disc placed, Secured, Placement confirmed, No pneumothorax, No complications, Bundle checklist complete, Pt tolerated well PD Medical Decision Making - ED course Complexity details: reviewed old records, reviewed results, re-evaluated patient, considered differential, d/w patient, d/w family, d/w insurance healthcare consultant ED course: Patient brought in by family for variable blood pressures at home and low oxygen saturations. Almost immediately after being placed in an ED room patient had seizure-like activity and was found to be profoundly bradycardic on shelter monitor with no palpable pulse and CPR initiated. Glucose 170. Patient was given numerous rounds of epinephrine, sodium bicarb, calcium. She was intubated with 7.5 ET tube, however this was complicated by aspiration during the procedure. Staff unable to obtain IV access and an IO was placed in the left tibia. Daughter witnessed the initiation of CPR and tearfully expressed that family wants everything done for the patient and to continue CPR efforts. After approximately 20 minutes of CPR a pulse was palpated and resuscitation continued. EKG sinus rhythm without ST elevations to suggest occlusive disease. Patient opened her eyes and did not appear to be looking at healthcare staff and withdrawing from pain. She was started on propofol for sedation and Levophed for additional blood pressure support. A central line was placed in the right IJ for central and additional venous access. Antibiotics ordered due to suspicion of aspiration event. ABG reviewed, and O2 titrated accordingly. CT of the brain showed no obvious intracranial bleed and CT angio of the chest showed no obvious pulmonary embolism, however there were noted to be bilateral pleural effusions and pneumonia in the bases. We do not have nephrology, cardiology, or neurology at our facility and patient will have to be transferred for higher level of care. 0645 - Unable to arrange air transport due to weather conditions. Patient transported via ground. Hemodynamically stable at time of transfer in ambulance - Critical Care Time(min): 62 Time Includes: Direct patient care, Review records, Reassess patient, Document care, Coordinate care, Medical consult, Family consult for [facility] Data interpretation: Labs, Pulse ox, ABG, CXR, Prior EKG, Cardiac output Procedures included in critical care time: Peripheral IV, Blood draw, Ventilator mgmt Procedures excluded from critical care time: Central IV, Intubation, EKG, CPR Departure - Departure Disposition: 02 Transfer Acute Care Hosp Clinical Impression: Cardiac arrest, ESRD (end stage renal disease) on dialysis, Acute hypoxemic respiratory failure Aspiration pneumonia Qualifiers: Aspiration pneumonia type: unspecified Laterality: bilateral Lung location: unspecified part of lung Qualified Code(s): J69.0 - Pneumonitis due to inhalation of food and vomit Condition: Serious Forms: PCP List
[2023-06-20 03:10] LABS: ALBUMIN 3.7 g/dL (3.2-5.5); BILIRUBIN,TOTAL 0.7 mg/dL (0.2-1.0); CALCIUM 9.7 mg/dL (8.5-10.3); CREATININE 5.7 mg/dL (0.6-1.3); MAGNESIUM 2.5 mg/dL (1.7-2.3); PHOSPHORUS 6.1 mg/dL (2.5-5.0); POTASSIUM 5.7 mmol/L (3.5-4.5); TOTAL PROTEIN 7.3 g/dL (6.4-8.9)
[2023-06-20] MEDS ORDERED: iohexoL-300 100 ML VIAL ONE (03:17)
[2023-06-20 03:26] LABS: SLIDE REVIEW? Indicated
[2023-06-20] MEDS: NOREPINEPHRINE/0.9 % NS 8 MG/250 ML BAG IV SCH (03:30)
[2023-06-20 03:50] LABS: B. PARAPERTUSSIS- RESP PCR PAN NOT DETECTED; B. PERTUSSIS- RESP PCR PANEL NOT DETECTED; C. PNEUMONIAE- RESP PCR PANEL NOT DETECTED; CORONAVIRUS 229E-RESP PCR NOT DETECTED; CORONAVIRUS HKU1-RESP PCR NOT DETECTED; CORONAVIRUS NL63-RESP PCR NOT DETECTED; CORONAVIRUS OC43-RESP PCR NOT DETECTED; HUMAN METAPNEUMOVIRUS NOT DETECTED; INFLUENZA A- RESP PCR PANEL NOT DETECTED; INFLUENZA B - RESP PCR PANEL NOT DETECTED; M. PNEUMONIAE- RESP PCR PANEL NOT DETECTED; PARAINFLUENZA VIRUS 1 NOT DETECTED; PARAINFLUENZA VIRUS 2 NOT DETECTED; PARAINFLUENZA VIRUS 3 NOT DETECTED; PARAINFLUENZA VIRUS 4 NOT DETECTED; RHINOVIRUS/ENTEROVIRUS NOT DETECTED; RSV- RESP PCR PANEL NOT DETECTED; SARS-CoV-2 -RESP PCR PANEL NOT DETECTED
[2023-06-20 03:51] LABS: INR 1.1 (0.8-1.2); PT - PROTHROMBIN TIME 12.5 secs (9.9-12.6)
[2023-06-20 03:52] LABS: PLATELET ESTIMATE, MANUAL NORMAL (130-450,000) (NORMAL); PLATELET MORPHOLOGY NORMAL APPEARANCE (NORMAL)
[2023-06-20] MEDS: iohexoL-300 100 ML VIAL IVP ONE (04:06)
[2023-06-20] MEDS ORDERED: cefTRIAXone 1 GM VIAL ONE (04:07)
[2023-06-20] MEDS: cefTRIAXone 1 GM in SODIUM CHLORIDE 0.9% MINIBAG 100 ML IV STA (04:16)
[2023-06-20 04:28] LABS: ABG BASE EXCESS 7.3 mmol/L (-2.0-3.0); ABG HCO3 31.6 mmol/L (22.0-26.0); ABG OXYGEN SATURATION 99 % (94-98); ABG PCO2 44 mmHg (34-45); ABG PH 7.48 (7.35-7.45); ABG TCO2 32.9 MMOL/L (21.0-29.0); ALLEN TEST POSITIVE
[2023-06-20 04:29] LABS: ABG MODE OF VENTILATION ASSIST/CONTROL; ABG RESPIRATORY RATE 18 b/min
[2023-06-20 04:30] LABS: ABG PO2 223 mmHg (80-100)
[2023-06-20] MEDS: AZITHROMYCIN INJ 500 MG in SODIUM CHLORIDE 0.9% 250 ML IV STA (05:01)
[2023-06-20] MEDS ORDERED: CALCIUM CHLORIDE ABBOJECT 1000MG/10 ML SYRINGE IVP ONE (06:00)
[2023-06-20] MEDS ORDERED: EPINEPHrine ABBOJECT 1 MG/10 ML SYRINGE IVP ONE (06:00)
[2023-06-20] MEDS ORDERED: SODIUM BICARBONATE ABBOJECT 50 MEQ/50 ML SYRINGE IVP ONE (06:00)
[2023-06-20 06:40] VITALS: O2SAT 100
[2023-06-20 06:58] VITALS: BP 123/53
--- NOTE | 2023-06-20 07:52 | CT Report ---
PROCEDURE: Head WO INDICATIONS: post arrest TECHNIQUE: Noncontrast 4.5 mm thick angled axial sections acquired from the foramen magnum to the vertex. For r adiation dose reduction, the following was used: automated exposure control, adjustment of mA and/or kV according to patient size. COMPARISON: None. FINDINGS: Image quality: Excellent. CSF spaces: Basal cisterns are patent. No extra-axial fluid collections. Ventricles are normal in size and shape. Brain: No midline shift. No intracranial masses or hemorrhage. Mild age-appropriate cerebral corti mily volume loss. Mild small vessel ischemic changes. Benign basal ganglia calcifications. Harris-white matter interface is normal. Skull and face: Calvarium and visualized facial bones are intact, without suspicious lesions. Nasog astric tube and endotracheal tubes are in position. Sinuses: Visualized sinuses and mastoids are clear. IMPRESSION: 1. No CT evidence of acute intracranial process. 2. Final interpretation concordant with preliminary report. Reviewed by: Sandi Astorga MD on 06/20/2023 7:51 AM PST Approved by: Sandi Astorga MD on 06/20/2023 7:51 AM PST Station ID: [id number]
--- NOTE | 2023-06-20 08:33 | XRAY Report ---
PROCEDURE: Chest 1V INDICATIONS: post arrest/intubation TECHNIQUE: One view of the chest was acquired. COMPARISON: None. FINDINGS: Surgical changes and devices: Endotracheal tube and orogastric tubes are present in satisfactory pos ition. Defibrillator pads in place. Right axillary vascular stent. Lungs and pleura: There is hazy alveolar opacity in the right perihilar regions, small right pleural effusion, and no pneumothorax. Probable left infrahilar opacity. Mediastinum: Mild cardiomegaly and atherosclerotic aortic arch. Bones and chest wall: No suspicious bony lesions. Overlying soft tissues appear unremarkable. IMPRESSION: Diffuse right lung airspace opacity and left lower lung opacity. Support tubes in expected location. Findings are concordant with preliminary interpretation provided by [facility]. Reviewed by: Sandi Astorga MD on 06/20/2023 8:32 AM PST Approved by: Sandi Astorga MD on 06/20/2023 8:32 AM PST Station ID: [id number]
--- NOTE | 2023-06-20 09:22 | CT Report ---
PROCEDURE: Angio Chest INDICATIONS: HYPOXIA, RECENT COVID, POST ARREST CONTRAST: 100 ml omni 300 TECHNIQUE: After the administration of intravenous contrast, 2 mm axial images were acquired from the pulmonary apices to the posterior costophrenic angles during the arterial phase. In addition, 1 mm lung kernel and 5 mm soft tissue kernel reconstructions were performed. 3-dimensional coronal oblique maximum int ensity projection (MIP) reformats, 8 mm axial MIP, and 5 mm coronal and sagittal MPR reformats were t hen performed through the thorax. For radiation dose reduction, the following was used: automated exp osure control, adjustment of mA and/or kV according to patient size. COMPARISON: Correlation is made with the accompanying imaging. FINDINGS: Image quality: Excellent. Large vessels: No filling defects within the opacified pulmonary arteries, accounting for motion and contrast timing. No evidence of acute aortic syndrome or aortic aneurysm. Lungs and pleura: Small bilateral pleural effusions are seen, right worse than left. Patchy areas of atelectasis can be seen. Additional areas of groundglass opacity can be seen, particularly involving the right middle lobe and the right upper lobe. No pneumothorax is seen. The tip of endotracheal tube is seen 3 cm above the nader. Secretions are seen within the main bronc hi. Mediastinum: Heart size is mildly enlarged. Moderate coronary artery calcification is seen. There is a small pericardial effusion. No large vessel abnormality. Borderline prominent mediastinal lymph nod es are seen, likely reactive. Chest wall and lower neck: Thyroid is unremarkable. No axillary or supraclavicular adenopathy by size . Bones: No aggressive osseous abnormality. Mildly displaced rib fractures can be seen on the left ante riorly, involving the first through sixth ribs. A likely minimally displaced sternal fracture can be seen, as on series 11 image 73. Upper Abdomen: The tip of the gastric tube can be seen extending into the stomach. Its tip is not vis ible within the [id number] of this study. There is reflux of contrast seen into the inferior vena cava and hepatic veins. The visualized portions of the upper abdominal structures are otherwise withi n normal limits. IMPRESSION: No pulmonary embolus. Abnormal lungs, with patchy ground glass opacity, which is consistent with the given clinical history of, pneumonia. Small bilateral pleural effusions are seen. There is a small pericardial effusion. There is an irregularly and reflux of contrast seen into the inferior vena cava and hepatic veins. CH F is suspected. Mildly displaced first through sixth left anterior rib fractures can be seen, which is consistent wit h this patient's history of recent CPR. A minimally displaced sternal fracture is also likely present . The tip of the endotracheal tube is seen 3 cm above the nader. Secretions can be seen within the main bronchi. The tip of the gastric tube can be seen extending into the stomach. There is moderate coronary artery calcification. Note: No significant discrepancy from the preliminary report. Reviewed by: Naveen Toussaint MD on 06/20/2023 8:21 AM [facility] Approved by: Naveen Toussaint MD on 06/20/2023 8:21 AM [facility] Station ID: [id number]
== END 2023-06-20 06:50 | disposition short-term general hospital (02) ==
LOC: ED 01:29
DX: I46.9 Cardiac arrest, cause unspecified (principal); J96.91 Respiratory failure, unspecified with hypoxia; J69.0 Pneumonitis due to inhalation of food and vomit; E87.70 Fluid overload, unspecified; N18.6 End stage renal disease; Z99.2 Dependence on renal dialysis
CPT/HCPCS: 31500; 36415; 36556; 36600; 51702; 70450; 71045; 71275; 80053; 82803; 83605; 83690; 83735; 83880; 84100; 84484; 85025; 85610; 86850; 86900; 86901; 87040; 87150; 87181; 87633; 92950; 93005; 94002; 96365; 96366; 96368; 96375; 99291; Q9967

== ENCOUNTER 2023-09-22 13:57 | Outpatient (CLI) | payer MEDICARE, MEDICAID ==
--- NOTE | 2023-09-22 14:35 | Sleep Patient Instructions ---
Sleep Center Visit Summary - Patient Visit Information Reason for Visit: Initial consult for evaluation of sleep disordered breathing and other sleep issues. - Patient Instructions Additional Instructions: You will be completing a sleep study, either an in-lab polysomnography (PSG) or home sleep study (HST). You will follow-up in the sleep care office after the sleep study is completed to hear the results and talk about therapy, if needed. You will be called by our office staff to schedule this appointment, but you may contact us with any questions. - Clinic Information Contact: [facility] [address] [place] [id number] [email or web address] T: [phone]
--- NOTE | 2023-09-22 14:38 | SLEEP CARE CONSULTATION ---
Information from patient questionnaire entered by Tracee Holden. I have reviewed and concur with the information entered by Tracee Holden. This document represents the service I personally performed and the decisions made by me, Doris Parker ARNP. History of Present Illness Service Date and Time: 09/22/2023 1357 Reason for Visit: New patient, Previously diagnosed sleep apnea Chief Complaint: reports: Snoring Date of Onset: 2005 Usual bedtime: [id number] Time it takes to fall asleep: 30 minutes Snores at night: Yes Observed to quit breathing while asleep: Yes Number of times waking at night: 3 Reasons for waking at night: reports: Bathroom. denies: Choking, Snoring, Gasping for air Toss, Turn, or Twitch while sleeping: No Recalls having dreams: No (sometimes does remember dreaming) Usually gets out of bed at: 0700 Feels refreshed in the morning: No Morning headache: Yes (2-3 times a week, gone soon in morning) Sleepy or fatigued during the day: Yes Ever fallen asleep while driving: No (she does not drive) Takes day naps: Yes (almost every day for about an hour) Dreams during day naps: Yes Prior sleep studies: Yes Additional HPI information: I had the pleasure of seeing DELFIN FRANKEL today regarding the possibility of her having a sleep disorder. Her current complaint is snoring. She was previously diagnosed with sleep apnea and was placed on a CPAP in 2008. She could not tolerate the mask and turned the machine back in to the supplier. Her doctor wants her to be re-evaluated. She is currently on dialysis and has been for 7 years. She says she can go to sleep in about 30 minutes but will wake up about [id number] and has a hard time going back to sleep. She does doze off and on until she gets up at 0700. She says she wakes up feeling refreshed. She will take a nap almost daily for about an hour. - Parasomnia Symptoms Ever been unable to move upon waking from sleep: No Walks in sleep: No Talks in sleep: Yes Ever acted out dreams in sleep: No Ever felt weak in the knees when startled or emotional: No Bothered by creepy, crawly, restless sensations in legs: No Problems with memory or concentration: Yes (sometimes memory) Subjective Initial [place] Sleepiness Scale score: 6 (09/22/23) Past Medical History Past Medical History: reports: Hypertension, Diabetes, Other (Kidney Failure, stage 4, on dialysis; ) Social History The patient's occupation is a RE. Patient is and lives in [place]. Have you smoked in the past 12 months: No Alcohol use: No Caffeine use: No Family History Family history of sleep disordered breathing: No Allergies and Home Medications Known drug allergies: Yes (lisinopril) Drug allergies reviewed: Yes Home medication list reviewed: Yes (as listed) Allergy and home medication list: Allergies lisinopril Allergy (Verified 09/20/23 10:35) Unknown Home Medications Medication Instructions Recorded Confirmed Last Taken Type Amlodipine Besylate [Norvasc] 10 mg PO DAILY 06/20/23 09/22/23 Unknown History carvediloL [Coreg] 12.5 mg PO BID 06/20/23 09/22/23 Unknown History Ascorbic Acid [Vitamin C] See Rx Instructions .ROUTE .COMPLEX 09/22/23 09/22/23 Unknown History Cholecalciferol (Vitamin D3) See Rx Instructions .ROUTE .COMPLEX 09/22/23 09/22/23 Unknown History [Vitamin D3] Review of Systems Weight loss over past 5 years: 61 Cardiovascular: denies: high blood pressure Gastrointestinal: denies: heartburn Neurological: denies: headaches Psychiatric: denies: anxiety, depression Ear/Nose/Throat: denies: tonsillectomy Endocrine: denies: thyroid disease Immunologic: denies: allergies to food or environment Physical Exam Vital signs obtained and entered by: TRACEE Rosales MA Blood Pressure: 145/63 (LEFT ARM) Cuff size: regular Heart Rate: 76 O2 Saturation: 95 Height: 4 ft 9.5 in Weight: 136 lb 6.4 oz Body Mass Index: 29.0 BMI Classification: Overweight Neck circumference: 15.25 Nostrils: patent to airflow Mouth and throat: narrow oropharynx Soft palate: long Hard palate: normal Uvula: normal Uvula visualization: 0% Mallampati Class IV Tongue: enlarged in size with teeth dior on lateral edges Tonsils: 2+ Neck: normal w/o lymphadenopathy or thyromegaly Heart: regular rate and rhythm, murmur Lungs: clear bilaterally Impression and Plan 1. Suspected Obstructive Sleep Apnea-Hypopnea Syndrome, as previously diagnosed and as suggested by a history of loud and irregular snoring, observed cessation of breath while asleep, morning headache, cognitive impairment and frequent night awakenings. I recommend proceeding to polysomnography to confirm the diagnosis and to assess severity. If the patient has significant sleep disordered breathing, a manual CPAP titration study will also be performed to find the optimal treatment pressure. I informed the patient of what the sleep studies involve and after some discussion, obtained agreement to proceed. The pathophysiology of obstructive sleep apnea-hypopnea syndrome was discussed with the patient and health risks of cardiovascular and cerebrovascular disease if not treated. Risks of drowsy driving discussed in detail and patient advised to avoid long distance driving and to well puller at the first sign of drowsiness. Patient agreed to plan. * Schedule polysomnography. * Avoid long distance driving or driving when feeling sleepy. * Avoid alcohol, sedative and muscle relaxant around bedtime. * Attempt to lose weight. * Review instructions provided by trained office staff on how to prepare for the sleep study. * Return for follow-up after sleep study completed. Counseling Topics: Weight loss health impact Plan: PSG and followup Visit Type: In Office Time Spent with Patient (minutes): 30 Provider Statement: I spent 100% of the Face to Face Visit with the patient with greater than 50% spent counseling the patient and coordination of care.
[2023-09-22 14:43] VITALS: BP 145/63; O2SAT 95
== END 2023-09-22 13:58 | disposition home or self-care (01) ==
LOC: SC 13:57
PROVIDERS: ATTEND Nurse Practitioner Family
DX: R06.81 Apnea, not elsewhere classified (principal); R06.83 Snoring; R51.9 Headache, unspecified; R41.89 Other symptoms and signs involving cognitive functions and awareness; G47.8 Other sleep disorders
CPT/HCPCS: 99213; G0463; 99212

== ENCOUNTER 2023-10-28 19:33 | Outpatient (CLI) | payer MEDICARE, MEDICAID | END 2023-10-28 19:34 | disposition home or self-care (01) | LOC: SC 19:33 | PROVIDERS: ATTEND Nurse Practitioner Family | DX: G47.33 Obstructive sleep apnea (adult) (pediatric) (principal); G47.61 Periodic limb movement disorder; E66.3 Overweight; Z68.27 Body mass index [BMI] 27.0-27.9, adult | CPT/HCPCS: 95810 ==

== ENCOUNTER 2023-11-17 14:25 | Outpatient (CLI) | payer MEDICARE, MEDICAID ==
--- NOTE | 2023-11-17 14:49 | Sleep Patient Instructions ---
Sleep Center Visit Summary - Patient Visit Information Reason for Visit: Sleep study follow-up - Patient Instructions Additional Instructions: You are being started on CPAP therapy. You will be completing a titration sleep study in our sleep lab where you will be sleeping with the CPAP machine on and we will be adjusting your pressures to find your optimal pressure settings. Once we have your results back, we will call you and schedule a follow up to go over the results, you may contact us with any questions or issues as needed. - Clinic Information Contact: [facility] [address] [place] [id number] [email or web address] T: [phone]
--- NOTE | 2023-11-17 14:51 | SLEEP CARE CONSULTATION ---
Information from patient questionnaire entered by Tracee Holden. I have reviewed and concur with the information entered by Tracee Holden. This document represents the service I personally performed and the decisions made by , Doris Parker ARNP. History of Present Illness Service Date and Time: 11/17/2023 142 Initial [place] Sleepiness Scale score: 6 (09/22/23) Current [place] Sleepiness Scale score: 12 (11/17/23) Additional HPI information: DELFIN FRANKEL returns for follow up and results of the recently performed polysomnography. The sleep study done on 10/28/23 showed severe obstructive sleep apnea with an average AHI of 37.3 and cheyanne oxygen saturation of 72%. She had moderate PLMs that did not contribute to sleep fragmentation. I explained the pathophysiology behind obstructive sleep apnea. We then spent quite a bit of time discussing different treatment options. For mild obstructive sleep apnea, surgery and oral appliance are alternatives to nasal CPAP therapy but in moderate or severe cases, nasal CPAP is the most effective and reliable treatment. I reviewed the impact of weight changes on sleep apnea and strongly recommended losing weight. After some discussion, the patient opted to go with the nasal CPAP therapy. A manual titration study will be ordered to find optimal pressure with office adjustments. Sleep Study - Results Type of Sleep Study: Polysomnography (COMPLETED 10/28/23) Prior sleep studies: Yes Polysomnography/Home Sleep Study results: IMPRESSION: The quality of the study is good. The patient had reduced sleep efficiency due to two prolonged awakenings during the night. Despite moderate sleep fragmentation, the sleep architecture was normal. Respiratory monitoring showed severe obstructive sleep apnea-hypopnea (AHI = 37.3) associated with frequent arousals, oxyhemoglobin desaturation and moderate hypoxia (cheyanne oxygen saturation of 72%). The respiratory events occurred predominantly during supine sleep (supine AHI = 39.4; non-supine = 15.93). Snore was light to loud in intensity. There was moderate periodic leg movement of sleep, not contributing to the sleep fragmentation. Cardiac rhythm was normal sinus rhythm without significant arrhythmia. No abnormal behavior (parasomnia) observed during the night. Allergies and Home Medications Known drug allergies: Yes (as listed) Drug allergies reviewed: Yes Home medication list reviewed: Yes (no changes) Allergy and home medication list: Allergies lisinopril Allergy (Verified 06/24/24 14:16) Unknown Review of Systems Review of systems same as previous: Yes (NO CHANGE) Physical Exam Vital signs obtained and entered by: TRACEE Rosales MA Blood Pressure: 157/64 (RIGHT ARM) Cuff size: regular Heart Rate: 63 O2 Saturation: 95 Height: 4 ft 9.5 in Weight: 136 lb 3.2 oz Body Mass Index: 28.9 BMI Classification: Overweight Impression and Plan 1. Obstructive Sleep Apnea-Hypopnea Syndrome, severe, with lowest oxygen saturation of 72%. Obviously this is the cause of the patients symptoms of excessive daytime sleepiness. Positive pressure therapy could benefit hypertension, diabetes and kidney disease. As mentioned above, the patient will be started on nasal autoCPAP therapy. A manual titration study will be completed to find optimal treatment pressure with office adjustments. Compliance guidelines also reviewed. A copy of compliance guidelines will be given for reference at check out. Because the apnea is more severe supine, I instructed to avoid sleeping supine using pillow positioning until able to start CPAP use. 2. Hypoxemia, moderate, with a cheyanne oxygen saturation of 72% and 90.8 minutes spent under 90%. The baseline oxygen saturation was low normal with an average oxygen saturation of 90%. 3. Periodic limb movement, moderate, that did not fragment patients sleep. Periodic limb movement of sleep (PLMS) is characterized by episodes of repetitive limb movements that occur during sleep and usually involve the lower limbs. The etiology is unknown. Patient was advised that no treatment is needed at this time. If symptoms increase, then further evaluation is indicated. 4. Overweight, unspecified. Currently patients BMI is 28.9. Obesity increases the risk of apnea, CPAP pressure requirements and overall health risks especiall y cardiovascular and diabetes. Thus patient is advised to lose weight. * Titration study * Attempt to lose weight. * Avoid supine sleep until using CPAP. * Return after titration study to review results and initiate therapy. Counseling Topics: Weight loss health impact Plan: Titration study and follow up Visit Type: In Office Time Spent with Patient (minutes): 20 Provider Statement: I spent 100% of the Face to Face Visit with the patient with greater than 50% spent counseling the patient and coordination of care.
[2023-11-17 14:53] VITALS: BP 157/64; O2SAT 95
== END 2023-11-17 14:26 | disposition home or self-care (01) ==
LOC: SC 14:25
PROVIDERS: ATTEND Nurse Practitioner Family
DX: G47.33 Obstructive sleep apnea (adult) (pediatric) (principal); R09.02 Hypoxemia; G47.61 Periodic limb movement disorder; E66.3 Overweight; Z68.28 Body mass index [BMI] 28.0-28.9, adult
CPT/HCPCS: 99213; G0463; 99212

== ENCOUNTER 2023-12-09 14:12 | Outpatient (CLI) | payer MEDICARE, MEDICAID ==
--- NOTE | 2023-12-13 13:33 | DEXA Report ---
PROCEDURE: Dexa Spine and/or Hip INDICATIONS: OSTEOPOROSIS TECHNIQUE: Dual energy x-ray absorptiometry (DXA) was performed on a [employer] System. Regions measur ed are the AP Spine, femoral neck, and if needed forearm. COMPARISON: DEXA on May 29, 2015 (direct comparison to current study cannot be made) FINDINGS: Lumbar Spine: Bone Mineral Density: 0.919 g/cm/cm,T score: -2.2. Osteopenia Left Femoral Neck: Bone Mineral Density: 0.588 g/cm/cm, T score: -3.2. Left Hip: Bone Mineral Density: 0.667 g/cm/cm,T score: -2.7. Osteoporosis (T score greater or equal to -1.0: NORMAL) (T score from -1.1 to -2.4: OSTEOPENIA) (T score less than or equal to -2.5 to: OSTEOPOROSIS) Impression: By WHO criteria, this patient has osteoporosis. Please note that comparison cannot be made to DEXA da jose May 29, 2015 due to old machine. Patients with diagnosis of osteoporosis or osteopenia should have regular bone mineral density assess ment. For those eligible for Medicare, routine testing is allowed once every 2 years. Testing frequ ency can be increased for patients who have rapidly progressing disease or for those who are receivin g medical therapy to restore bone mass. Reviewed by: Cee Chen MD on 12/13/2023 1:32 PM PDT Approved by: Cee Chen MD on 12/13/2023 1:32 PM PDT Station ID: [id number]
== END 2023-12-09 14:13 | disposition home or self-care (01) ==
LOC: DI 14:12
PROVIDERS: ATTEND Internal Medicine
DX: M81.0 Age-related osteoporosis without current pathological fracture (principal)

== ENCOUNTER 2024-01-06 19:24 | Outpatient (CLI) | payer MEDICARE, MEDICAID | END 2024-01-06 19:25 | disposition home or self-care (01) | LOC: SC 19:24 | PROVIDERS: ATTEND Nurse Practitioner Family | DX: G47.33 Obstructive sleep apnea (adult) (pediatric) (principal); G47.61 Periodic limb movement disorder | CPT/HCPCS: 95811 ==

== ENCOUNTER 2024-02-09 13:22 | Outpatient (CLI) | payer MEDICARE, MEDICAID ==
--- NOTE | 2024-02-09 14:04 | Sleep Patient Instructions ---
Sleep Center Visit Summary - Patient Visit Information Reason for Visit: Titration study follow-up - Patient Instructions Additional Instructions: You are being started on CPAP therapy with pressure setting at 12-16 cmH2O. You will need to call the sleep care office to set up your follow up once you have your CPAP machine to check compliance and response to therapy at that time. You may call the office with any concerns about pressure feeling too low or too much for adjustment, if needed. You should contact DME supplier for any questions or concerns about mask or equipment. Please call office to schedule a follow up appointment in the sleep care office one month after obtaining new device. - Clinic Information Contact: [facility] [address] [place] [address] [email or web address] T: [phone]
--- NOTE | 2024-02-09 14:07 | SLEEP CARE CONSULTATION ---
Information from patient questionnaire entered by Tracee Holden. I have reviewed and concur with the information entered by Tracee Holden. This document represents the service I personally performed and the decisions made by , Doris Parker ARNP. History of Present Illness Service Date and Time: 02/09/2024 1322 Initial [place] Sleepiness Scale score: 6 (09/22/23) Current [place] Sleepiness Scale score: 15 (02/09/24) Additional HPI information: DELFIN FRANKEL returns for follow up of a manual CPAP titration study performed on 01/06/24. Previous study done on 10/28/23 showed severe obstructive sleep apnea with AHI 37.3. The patient was informed of the following polysomnography findings: CPAP was initiated at 5 cmH2O and titrated up to CPAP at 16 cmH2O. CPAP at 14 cmH2O appeared to be optimal (AHI of 2.8 per hour on the pressure). There was supine REM sleep on the pressure. Oxygen saturation was minimally low. Lower CPAP settings allowed frequent residual respiratory events. The patient appeared to have tolerated positive airway pressure therapy very well. Patient also had moderate periodic leg movement of sleep which did not contribute to sleep fragmentation. I explained how CPAP machine works and what to expect when using the machine. Using CPAP every night in order to get used to it was emphasized. Patient advised to put CPAP mask on before getting into bed so as not to fall asleep without CPAP. To assist acclimation to CPAP use, it could also be used for a short time during day while reading or watching TV. The patient was instructed to call the CPAP supplier to discuss any mechanical problem that may occur. If the mask given is uncomfortable or is difficult to keep on through the night even with adjustment, contact the CPAP supplier as many will replace with another mask style if notified before 30 days. If snoring or perceives is not getting enough air or too much air from the machine, notify this office. Patient does not drink alcohol. Patient was cautioned about risks of drowsy driving until sleepiness symptoms resolve. Patient denies drowsy driving. She does not drive. Sleep Study - Results Type of Sleep Study: Polysomnography (COMPLETED 10/28/23 TITRATION STUDY COMPLETED 01/06/24) Prior sleep studies: Yes Polysomnography/Home Sleep Study results: IMPRESSION: The quality of the study is good. CPAP was initiated at 5 cmH2O and titrated up to CPAP at 16 cmH2O. CPAP at 14 cmH2O appeared to be optimal (AHI of 2.8 per hour on the pressure). There was supine REM sleep on the pressure. Oxygen saturation was minimally low. Lower CPAP settings allowed frequent residual respiratory events. The patient appeared to have tolerated positive airway pressure therapy very well. The patients sleep efficiency was normal. The sleep architecture was also normal. There was moderate periodic leg movement of sleep not associated with sleep fragmentation. Cardiac rhythm was sinus rhythm with frequent premature atrial contractions in bigeminy. No abnormal behavior (parasomnia) observed during the night. CONCLUSIONS and RECOMMENDATIONS: 1. Obstructive sleep apnea-hypopnea (ICD-10 G47.33), severe (AHI was 37.3), adequately controlled with CPAP at 14 cmH2O. CPAP therapy is, therefore, recommended at the pressure setting. AutoCPAP set between 12 and 16 cmH20 is also appropriate. Mask used was a [employer]ics Wisp nasal mask size large. With BMI of 27.1 Kg/M2 , some weight loss is also recommended. 2. Periodic leg movement of sleep (ICD G47.61), moderate, treatment may be indicated. Clinical correlation advised. Allergies and Home Medications Known drug allergies: Yes (as listed) Drug allergies reviewed: Yes Home medication list reviewed: Yes (no changes) Allergy and home medication list: Allergies lisinopril Allergy (Verified 02/09/24 13:30) Unknown Review of Systems Review of systems same as previous: Yes (NO CHANGE) Physical Exam Vital signs obtained and entered by: TRACEE Rosales MA Blood Pressure: 159/73 (RIGHT ARM) Cuff size: regular Heart Rate: 68 O2 Saturation: 96 Height: 4 ft 9.5 in Weight: 138 lb Body Mass Index: 29.3 BMI Classification: Overweight Impression and Plan 1. Obstructive Sleep Apnea-Hypopnea Syndrome, severe. She returns after a titration study to initiate CPAP therapy. Using positive pressure therapy could benefit her history of hypertension and diabetes. The patient will be started on nasal autoCPAP therapy with pressure set at 12-16 cmH2O. Compliance guidelines also reviewed. A copy of compliance guidelines will be given for reference at check out. 2. Periodic limb movement, moderate, that did not fragment patients sleep. Periodic limb movement of sleep (PLMS) is characterized by episodes of repetitive limb movements that occur during sleep and usually involve the lower limbs. The etiology is unknown. Patient was advised that no treatment is needed at this time. If symptoms increase, then further evaluation is indicated. 3. Overweight, unspecified. Currently patients BMI is 29.3. Obesity increases the risk of apnea, CPAP pressure requirements and overall health risks especially cardiovascular and diabetes. Thus patient is advised to lose weight. * Nasal auto CPAP therapy, pressure at 12-16 cm H2O. * Attempt to lose weight.. * Avoid supine sleeping supine until using CPAP * Return one month after CPAP obtained. I will assess response to therapy and compliance at that time. Counseling Topics: Weight loss health impact Prescriptions: Auto CPAP Follow up with Sleep Care in: other (compliance followup) Visit Type: In Office Time Spent with Patient (minutes): 20 Provider Statement: I spent 100% of the Face to Face Visit with the patient with greater than 50% spent counseling the patient and coordination of care.
[2024-02-09 14:12] VITALS: BP 159/73; O2SAT 96
== END 2024-02-09 13:23 | disposition home or self-care (01) ==
LOC: SC 13:22
PROVIDERS: ATTEND Nurse Practitioner Family
DX: G47.33 Obstructive sleep apnea (adult) (pediatric) (principal); G47.61 Periodic limb movement disorder; E66.3 Overweight; Z68.29 Body mass index [BMI] 29.0-29.9, adult
CPT/HCPCS: 99213; G0463; 99212